=== PATIENT | female | born 1995 | race Caucasian/White ===

== ENCOUNTER 2017-01-05 20:10 | Emergency (ER) | payer BC ==
[2017-01-05] MEDS ORDERED: Ketorolac Tromethamine 30 MG/ML VIAL ONE (21:53)
[2017-01-05] MEDS ORDERED: Metoclopramide HCl 10 MG/2 ML VIAL ONE (21:53)
[2017-01-05] MEDS ORDERED: Dexamethasone 10 MG/ML VIAL ONE (21:54)
== END 2017-01-05 22:26 | disposition home or self-care (01) ==
LOC: ERS 20:10
DX: R51 Headache (principal); F41.9 Anxiety disorder, unspecified; Z79.899 Other long term (current) drug therapy
CPT/HCPCS: 96374; 96375; J1100; J1885; J2765